=== PATIENT | male | born 1965 | race Caucasian/White ===

== ENCOUNTER 2016-09-28 19:49 | Emergency (ER) | payer BC ==
[2016-09-28 19:57] VITALS: BP 137/94
--- NOTE | 2016-09-28 20:34 | EDM.PDOC ---
ED HPI GENERAL MEDICAL PROBLEM - General Chief Complaint: General Stated Complaint: Mouth Swelling Time Seen by Provider: 09/28/16 20:13 Source of Information: Reports: Patient History Limitations: Reports: No Limitations - History of Present Illness INITIAL COMMENTS - FREE TEXT/NARRATIVE: Patient comes in with complaint that his lips are feeling swollen today. He says that he has felt on/off swelling around mouth over the last few days. Also notes increased nasal congestion. No SOB/respiratory complaints. No hives. No known food/chemical contact. No changes in what he consumes/is exposed to. Has had similar reaction in past to Almonds as well as Gabapentin for shingles. Took two Benadryl early this morning and one later this afternoon. No other complaints. Feels OK otherwise when ROS performed. confirms that patient's lips are more swollen than usual. - Related Data Allergies Allergy/AdvReac Type Severity Reaction Status Date / Time gabapentin Allergy Swelling Verified 09/28/16 20:28 Home Meds: Home Meds Fluticasone Propionate [Flonase] 2 spray NASBOTH DAILY 09/28/16 [History] Past Medical History - Past Health History Medical/Surgical History: Denies Medical/Surgical History ED ROS GENERAL - Review of Systems Review Of Systems: ROS reveals no pertinent complaints other than HPI. ED EXAM, GENERAL - Physical Exam Exam: See Below Exam Limited By: No Limitations General Appearance: Alert, WD/WN, No Apparent Distress Eye Exam: Bilateral Eye: EOMI, PERRL Ears: Normal External Exam, Normal Canal, Hearing Grossly Normal, Normal TMs Nose: Other (Musosa is boggy, pale) Throat/Mouth: Normal Teeth, Normal Gums, Normal Oropharynx, Normal Voice, No Airway Compromise, Other (Lips do not appear obviously swollen) Head: Atraumatic, Normocephalic Neck: Normal Inspection, Supple, Non-Tender, Full Range of Motion Respiratory/Chest: No Respiratory Distress, Lungs Clear, Normal Breath Sounds, No Accessory Muscle Use Cardiovascular: Normal Peripheral Pulses, Regular Rate, Rhythm, No Edema, No Murmur GI/Abdominal: Soft Extremities: Normal Inspection, Normal Capillary Refill Neurological: Alert, Oriented, Normal Cognition, Normal Gait Psychiatric: Normal Affect, Normal Mood Skin Exam: Warm, Dry, Intact, Normal Color, No Rash Course - Vital Signs Last Recorded V/S: Last Vital Signs Temp 36.6 C 09/28/16 19:55 Pulse 63 09/28/16 19:55 Resp 14 09/28/16 19:55 BP 137/94 H 09/28/16 19:55 Pulse Ox 98 09/28/16 19:55 - Re-Assessments/Exams Free Text/Narrative Re-Assessment/Exam: Mild swelling of lips/angioedema along with nasal congestion. No respiratory compromise. No urticaria. Uncertain as to trigger. Plan at this time is to provide course of Prednisone. Patient is to continue to be vigilant for food/ environmental triggers as well as worsening problems or new symptoms. Recommended follow up with primary provider this week unless symptoms completely resolve. Extensive precautions reviewed prior to discharge. Departure - Departure Time of Disposition: 20:32 Disposition: Home, Self-Care 01 Condition: Good Clinical Impression: Swelling of both lips - Discharge Information Instructions: Angioedema, [id number], Prednisolone tablets Referrals: PCP,Unknown [Primary Care Provider] - Forms: ED Department Discharge Additional Instructions: Watch for any new symptoms or worsening problems. Follow up in ER if you have sudden worsening, such as shortness of breath. Follow up in clinic next week if you continue to have intermittent mild lip swelling and get rechecked. Ok to take Benadryl 1-2 tablets every 6 hours to help with symptoms. Take Prednisone as directed for 5 days.
== END 2016-09-28 20:50 | disposition home or self-care (01) ==
LOC: LL.ED 19:49
DX: R22.0 Localized swelling, mass and lump, head (principal); Z88.8 Allergy status to other drugs, medicaments and biological substances; Z79.899 Other long term (current) drug therapy
CPT/HCPCS: 99283

== ENCOUNTER 2019-01-26 18:05 | Emergency (ER) | payer BC ==
[2019-01-26 18:53] LABS: CHLORIDE,CL 108 mmol/L (98-107); SODIUM,NA 143 mmol/L (136-145)
[2019-01-26] MEDS: Diltiazem 25 MG/5 ML SDV IVPUSH ONE (19:06)
[2019-01-26] MEDS: Sodium Chloride 0.9% 10 ML Syringe FLUSH PRN (19:07)
--- NOTE | 2019-01-26 19:53 | EDM.PDOC ---
ED HPI GENERAL MEDICAL PROBLEM - General Chief Complaint: Chest Pain Stated Complaint: heart feels fast Time Seen by Provider: 01/26/19 18:11 Source of Information: Reports: Patient History Limitations: Reports: No Limitations - History of Present Illness INITIAL COMMENTS - FREE TEXT/NARRATIVE: Patient reports feeling that his heart was beating too fast today. Describes feeling "not right" but otherwise observed no other acute changes. Placed on monitor in ER and noted to have afib with tachycardic heart rate. Patient denies any cardiac history including arrhythmias. Has no chronic health conditions other than hypertension per self report but via questioning may have sleep apnea. Non-smoker. Denies caffeine/ETOH/illicit drug use. Was started on Prednisone and Augmentin yesterday for sinus infection. No fevers/chills. No other HEENT changes such as vision change/dizziness/vertigo/CLAUDIO. No respiratory complaints such as SOB/cough Did have brief/sharp chest discomfort at 6am when he first noted symptoms. This did not return, currently pain-free. Pain did not radiate anywhere. Denies GI changes such as nausea/emesis/bowel changes. Eating ok. No urinary complaints. No musc/skel changes/weakness/pain. No focal neuro changes/weakness. Has own BP machine at home. Essentially decided to come to the ER due to serial high BP readings. - Related Data Allergies Allergy/AdvReac Type Severity Reaction Status Date / Time peanut Allergy Anaphylactic Verified 01/26/19 18:09 Shock Home Meds: Home Meds Amoxicillin/Potassium Clav [Amox-Clav 875-125 mg Tablet] 1 each PO BID 01/26/19 [History] Diltiazem [Cardizem CD] 120 mg PO DAILY #21 cap.er 01/26/19 [Rx] Lisinopril 10 mg PO DAILY 01/26/19 [History] Rivaroxaban [Xarelto] 20 mg PO DAILY #21 tablet 01/26/19 [Rx] predniSONE [Prednisone] 3 tab PO DAILY 01/26/19 [History] Past Medical History - Past Health History Medical/Surgical History: Denies Medical/Surgical History Cardiovascular History: Reports: Hypertension, Other (See Below) Other Cardiovascular History: new afib today - Infectious Disease History Infectious Disease History: Reports: Shingles - Past Surgical History HEENT Surgical History: Reports: Polypectomy, Other (See Below) Other HEENT Surgeries/Procedures: sinus surgery Male Surgical History: Reports: Other (See Below) Other Male Surgeries/Procedures: gave kidney to brother Endocrine Surgical History: Reports: Other (See Below) Other Endocrine Surgeries/Procedures: 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 Social & Family History - Tobacco Use Smoking Status *Q: Never Smoker Second Hand Smoke Exposure: No - Caffeine Use Caffeine Use: Reports: None - Alcohol Use Alcohol Use History: No - Recreational Drug Use Recreational Drug Use: No Drug Use in Last 12 Months: No ED ROS GENERAL - Review of Systems Review Of Systems: Comprehensive ROS is negative, except as noted in HPI. Constitutional: Denies: Fever, Weakness, Fatigue, Diaphoresis HEENT: Denies: Vision Change Respiratory: Denies: Shortness of Breath, Pleuritic Chest Pain Cardiovascular: Reports: Chest Pain, Blood Pressure Problem, Palpitations. Denies: Dyspnea on Exertion, Edema, Lightheadedness, Syncope GI/Abdominal: Reports: No Symptoms : Reports: No Symptoms Musculoskeletal: Reports: No Symptoms Skin: Reports: No Symptoms Neurological: Reports: No Symptoms Psychiatric: Reports: No Symptoms Hematologic/Lymphatic: Reports: No Symptoms ED EXAM, GENERAL - Physical Exam Exam: See Below Exam Limited By: No Limitations General Appearance: Alert, WD/WN, No Apparent Distress Eye Exam: Bilateral Eye: EOMI, PERRL Ears: Normal External Exam, Hearing Grossly Normal Nose: No: Nasal Deformity, Nasal Swelling, Nasal Drainage Throat/Mouth: Normal Lips, Normal Voice, No Airway Compromise Head: Atraumatic, Normocephalic Neck: Normal Inspection, Supple, Non-Tender, Full Range of Motion. No: Carotid Bruit Respiratory/Chest: No Respiratory Distress, Lungs Clear, Normal Breath Sounds, No Accessory Muscle Use, Chest Non-Tender Cardiovascular: No Edema, No Murmur, Tachycardia Peripheral Pulses: 2+: Radial (L), Radial (R) GI/Abdominal: Normal Bowel Sounds, Soft, Non-Tender, No Distention (Male) Exam: Penile Lesions Rectal (Males) Exam: Deferred Back Exam: Normal Inspection Extremities: Normal Range of Motion, Non-Tender, No Pedal Edema, Normal Capillary Refill Neurological: Alert, Oriented, Normal Cognition, Normal Gait, No Motor/Sensory Deficits Psychiatric: Normal Affect, Normal Mood Skin Exam: Warm, Dry, Intact, Normal Color EKG INTERPRETATION EKG Date: 01/26/19 Time: 18:35 Rhythm: A-Fib Rate (Beats/Min): 84 Arnold: LAD-Left Arnold Deviation P-Wave: Absent QRS: Other (QRS slightly widened) ST-T: Other (no acute changes suggestive of ischemia noted) QT: Normal Comparison: NA - No Prior EKG Course - Vital Signs Last Recorded V/S: Last Vital Signs Temp 36.6 C 01/26/19 18:06 Pulse 90 01/26/19 18:30 Resp 18 01/26/19 18:30 BP 145/93 H 01/26/19 18:30 Pulse Ox 95 01/26/19 18:30 - Orders/Labs/Meds Orders: Active Orders 24 hr Category Date Time Status EKG Documentation Completion [RC] ASDIRECTED Care 01/26/19 18:12 Ordered Chest 2V [CR] Stat Exams 01/26/19 18:12 Ordered TSH ULTRASENSITIVE [CHEM] Routine Lab 01/26/19 19:22 Ordered Diltiazem [Cardizem CD] Med 01/26/19 19:45 Once 120 mg PO ONETIME ONE Rivaroxaban [Xarelto] Med 01/27/19 19:45 Once 20 mg PO ONETIME ONE Sodium Chloride 0.9% [Saline Flush] Med 01/26/19 18:11 Ordered 10 ml FLUSH ASDIRECTED PRN Saline Lock Insert [OM.PC] Routine Oth 01/26/19 18:11 Ordered Medication Orders Diltiazem HCl (Cardizem Cd) 120 mg PO ONETIME ONE Stop: 01/26/19 19:46 Rivaroxaban (Xarelto) 20 mg PO ONETIME ONE Stop: 01/27/19 19:46 Sodium Chloride (Saline Flush) 10 ml FLUSH ASDIRECTED PRN PRN Reason: Keep Vein Open Last Admin: 01/26/19 19:07 Dose: 10 ml Labs: Laboratory Tests 01/26/19 01/26/19 01/26/19 Range/Units 18:33 18:33 18:33 WBC 9.3 (4.0-10.2) K/uL RBC 4.81 (4.33-5.41) M/uL Hgb 14.3 (13.1-16.8) g/dL Hct 43.5 (39.0-49.0) % MCV 90.4 (84.0-98.0) fL MCH 29.7 (28.2-33.3) pg MCHC 32.9 (31.7-36.0) g/dL RDW 14.5 H (11.2-14.1) % Plt Count 211 (150-350) K/uL Neut % (Auto) 66.6 (45.0-80.0) % Lymph % (Auto) 18.9 (10.0-50.0) % [place] % (Auto) 11.1 (2.0-14.0) % Eos % (Auto) 2.9 (0.0-5.0) % Baso % (Auto) 0.5 (0.0-2.0) % Neut # (Auto) 6.19 (1.40-7.00) K/uL Lymph # (Auto) 1.76 (0.50-3.50) K/uL [place] # (Auto) 1.03 H (0.00-1.00) K/uL Eos # (Auto) 0.27 (0.00-0.50) K/uL Baso # (Auto) 0.05 (0.00-0.20) K/uL PT 10.2 (9.5-12.0) SEC INR 0.9 Sodium 143 (136-145) mmol/L Potassium 3.5 (3.5-5.1) mmol/L Chloride 108 H (98-107) mmol/L Carbon Dioxide 22.9 (21.0-32.0) mmol/L BUN 20 H (7-18) mg/dL Creatinine 1.14 (0.51-1.17) mg/dL Est Cr Clr Drug Dosing 76.49 mL/min Estimated GFR (MDRD) > 60 mL/min Glucose 97 (74-106) mg/dL Calcium 8.2 L (8.5-10.1) mg/dL Magnesium 2.0 (1.8-2.4) mg/dL Total Bilirubin 0.2 (0.2-1.0) mg/dL AST 39 H (15-37) U/L ALT 74 (12-78) U/L Alkaline Phosphatase 62 (46-116) IU/L Troponin I 0.000 (0.000-0.056) ng/mL Total Protein 7.2 (6.4-8.2) g/dL Albumin 3.5 (3.4-5.0) g/dL Specimen Type Urine Color Urine Appearance Urine pH (5.0-9.0) Ur Specific [place] (1.005-1.030) Urine Protein (NEGATIVE) mg/dL Urine Glucose (UA) (NEGATIVE) mg/dL Urine Ketones (NEGATIVE) mg/dL Urine Occult Blood (NEGATIVE) Urine Nitrite (NEGATIVE) Urine Bilirubin (NEGATIVE) Urine Urobilinogen (0.2-1.0) E.U./dL Ur Leukocyte Esterase (NEGATIVE) Urine RBC /HPF Urine WBC /HPF Ur Epithelial Cells /LPF Urine Bacteria (NONE TO FEW) /HPF 01/26/19 Range/Units 18:59 WBC (4.0-10.2) K/uL RBC (4.33-5.41) M/uL Hgb (13.1-16.8) g/dL Hct (39.0-49.0) % MCV (84.0-98.0) fL MCH (28.2-33.3) pg MCHC (31.7-36.0) g/dL RDW (11.2-14.1) % Plt Count (150-350) K/uL Neut % (Auto) (45.0-80.0) % Lymph % (Auto) (10.0-50.0) % [place] % (Auto) (2.0-14.0) % Eos % (Auto) (0.0-5.0) % Baso % (Auto) (0.0-2.0) % Neut # (Auto) (1.40-7.00) K/uL Lymph # (Auto) (0.50-3.50) K/uL [place] # (Auto) (0.00-1.00) K/uL Eos # (Auto) (0.00-0.50) K/uL Baso # (Auto) (0.00-0.20) K/uL PT (9.5-12.0) SEC INR Sodium (136-145) mmol/L Potassium (3.5-5.1) mmol/L Chloride (98-107) mmol/L Carbon Dioxide (21.0-32.0) mmol/L BUN (7-18) mg/dL Creatinine (0.51-1.17) mg/dL Est Cr Clr Drug Dosing mL/min Estimated GFR (MDRD) mL/min Glucose (74-106) mg/dL Calcium (8.5-10.1) mg/dL Magnesium (1.8-2.4) mg/dL Total Bilirubin (0.2-1.0) mg/dL AST (15-37) U/L ALT (12-78) U/L Alkaline Phosphatase (46-116) IU/L Troponin I (0.000-0.056) ng/mL Total Protein (6.4-8.2) g/dL Albumin (3.4-5.0) g/dL Specimen Type Urinblad Urine Color Yellow Urine Appearance Clear Urine pH 6.5 (5.0-9.0) Ur Specific [place] 1.015 (1.005-1.030) Urine Protein Negative (NEGATIVE) mg/dL Urine Glucose (UA) Negative (NEGATIVE) mg/dL Urine Ketones Negative (NEGATIVE) mg/dL Urine Occult Blood Negative (NEGATIVE) Urine Nitrite Negative (NEGATIVE) Urine Bilirubin Negative (NEGATIVE) Urine Urobilinogen 0.2 (0.2-1.0) E.U./dL Ur Leukocyte Esterase Negative (NEGATIVE) Urine RBC Not seen /HPF Urine WBC 0-5 /HPF Ur Epithelial Cells Few /LPF Urine Bacteria Few (NONE TO FEW) /HPF Meds: Medications Generic Name Dose Route Start Last Admin Trade Name Freq PRN Reason Stop Dose Admin Diltiazem HCl 120 mg 01/26/19 19:45 Cardizem Cd PO 01/26/19 19:46 ONETIME ONE Rivaroxaban 20 mg 01/27/19 19:45 Xarelto PO 01/27/19 19:46 ONETIME ONE Sodium Chloride 10 ml 01/26/19 18:11 01/26/19 19:07 Saline Flush FLUSH 10 ml ASDIRECTED PRN Administration Keep Vein Open Discontinued Medications Generic Name Dose Route Start Last Admin Trade Name Freq PRN Reason Stop Dose Admin Diltiazem HCl 20 mg 01/26/19 18:57 01/26/19 19:06 Diltiazem IVPUSH 01/26/19 18:58 20 mg ONETIME ONE Administration - Radiology Interpretation Free Text/Narrative:: Chest xray did not show obvious acute focal changes. Pending Radiology review - Re-Assessments/Exams Free Text/Narrative Re-Assessment/Exam: 01/26/19 19:59 CBC/Chem/Troponin overall unremarkable. TSH pending. UA normal. Patient received single dose of Cardizem and had good improvement of rate/BP. Continued to remain asymptomatic, vital signs stable. Call placed to [facility] in [place]. Patient reviewed with Dr. Fuentes from Cardiology. Given that patient is stable, asymptomatic, with normal labs, it was recommended to start patient on Xarelto and Cardizem for anticoagulation and rate control. Patient is to call tomorrow and arrange a follow up appointment with Cardiology for further care and evaluation, including echo to rule out potential thrombus formation. Work slip given for [facility] and tomorrow. Patient already on restrictions at [facility]. He is also to follow up with his primary provider or Friday if he is able to get an appointment. Precautions reviewed prior to discharge. He knows to return to the ER if he has worsening problems, such as chest pain/SOB. Departure - Departure Time of Disposition: 20:07 Disposition: Home, Self-Care 01 Clinical Impression: New onset a-fib - Discharge Information *PRESCRIPTION DRUG MONITORING PROGRAM REVIEWED*: Not Applicable *COPY OF PRESCRIPTION DRUG MONITORING REPORT IN PATIENT SARA: Not Applicable Prescriptions: Diltiazem [Cardizem CD] 120 mg PO DAILY #21 cap.er Rivaroxaban [Xarelto] 20 mg PO DAILY #21 tablet Instructions: Atrial Fibrillation Additional Instructions: Take it easy and avoid strenuous activity. Return to the ER if you feel worse, such as developing shortness of breath/ chest pain/dizziness. Make two appointments tomorrow. One with your primary provider to get rechecked on or Friday of this week. One with [facility] Cardiology within the next week or so. Tell them that you have new onset AFib and that we spoke to from Cardiology [facility] and you are supposed to be seen for this. You will need to be scheduled for an echo study of your heart to make certain that no thrombus has formed in there due to the AFib. We do have a travelling [place] [employer] tech that can perform this at our hospital in [place]. Have Cardiology or your primary provider order that test for you. Remember to return to the ER if your symptoms suddenly worsen. Things to look for include chest pain, shortness of breath, and feeling lightheaded. - My Orders Last 24 Hours: My Active Orders 01/26/19 18:11 Sodium Chloride 0.9% [Saline Flush] 10 ml FLUSH ASDIRECTED PRN Saline Lock Insert [OM.PC] Routine 01/26/19 18:12 EKG Documentation Completion [RC] ASDIRECTED Chest 2V [CR] Stat 01/26/19 19:22 TSH ULTRASENSITIVE [CHEM] Routine 01/26/19 19:45 Diltiazem [Cardizem CD] 120 mg PO ONETIME ONE 01/27/19 19:45 Rivaroxaban [Xarelto] 20 mg PO ONETIME ONE - Assessment/Plan Last 24 Hours: My Active Orders 01/26/19 18:11 Sodium Chloride 0.9% [Saline Flush] 10 ml FLUSH ASDIRECTED PRN Saline Lock Insert [OM.PC] Routine 01/26/19 18:12 EKG Documentation Completion [RC] ASDIRECTED Chest 2V [CR] Stat 01/26/19 19:22 TSH ULTRASENSITIVE [CHEM] Routine 01/26/19 19:45 Diltiazem [Cardizem CD] 120 mg PO ONETIME ONE 01/27/19 19:45 Rivaroxaban [Xarelto] 20 mg PO ONETIME ONE
[2019-01-26] MEDS: Rivaroxaban 10 MG Tab PO ONE (20:08)
[2019-01-26 20:09] VITALS: BP 116/88
[2019-01-26] MEDS: Diltiazem 120 MG Cap.CD PO ONE (20:09)
[2019-01-26 20:55] VITALS: PULSE 74
[2019-01-27] MEDS ORDERED: Rivaroxaban 10 MG Tab PO ONE (19:45)
== END 2019-01-26 20:30 | disposition home or self-care (01) ==
LOC: LL.ED 18:05
DX: I48.91 Unspecified atrial fibrillation (principal); I10 Essential (primary) hypertension; Z91.010 Allergy to peanuts; Z79.01 Long term (current) use of anticoagulants; Z79.899 Other long term (current) drug therapy
CPT/HCPCS: 36415; 71046; 80053; 81001; 83735; 84443; 84484; 85025; 85610; 93005; 96374; 99285-25; A9270-GY; J3490

== ENCOUNTER 2019-08-25 04:35 | Emergency (ER) | payer BC, OTHER ==
[2019-08-25 04:42] VITALS: BP 138/91; PULSE 70
--- NOTE | 2019-08-25 05:10 | EDM.PDOC ---
ED HPI GENERAL MEDICAL PROBLEM - General Chief Complaint: Lower Extremity Injury/Pain Stated Complaint: right knee injury Time Seen by Provider: 08/25/19 05:00 Source of Information: Reports: Patient, Old Records ([facility] EMR. No paper hospital chart available.) History Limitations: Reports: No Limitations - History of Present Illness INITIAL COMMENTS - FREE TEXT/NARRATIVE: The patient was brought to the emergency room via transport vehicle from [facility] for evaluation of a Workmen's Compensation injury, which occurred at about 6 AM on 08/24/19. The patient was walking down the stairs when he slipped and accidentally twisted his right knee with the patient able to complete his shift with no significant difficulty. He has not injured this knee in the past and felt that he only had a minor sprain at the time of injury. No history of significant fall, head injury, paresthesias, neurological deficits, etc. After he woke up later that day at about 2 PM he noticed he had some worsening pain with 400 mg of ibuprofen taken at that time and also at midnight this past evening. Patient also took 1500 mg of Tylenol at about 3 AM this evening with persistent 8/10 right knee pain. He denies any joint instability, neurological deficits, or other complaints or injuries. The patient denies any chest pain/pressure, heart flutter, dizziness, orthostasis, orthopnea, diaphoresis, paresthesias, recent decreased exercise tolerance, or any other anginal-type symptoms. No recent history of abdominal pain, heartburn, nausea, diarrhea, melena, gross hematochezia, or any food intolerance, including fatty foods, etc.. The patient also denies any recent fever, cough, wheezing, dyspnea, etc.. Onset: Sudden Onset Date: 08/24/19 Onset Time: 06:00 Duration: Constant, Getting Worse Location: Reports: Lower Extremity, Right. 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 Denies: Hard of Hearing, Impaired Vision, Retinal Detachment Cardiovascular History: Reports: Afib, High Cholesterol, Hypertension, Other (See Below). Denies: Arrhythmia, CAD, Cardiomyopathy, Heart Failure, Heart Murmur, [place], Syncope Other Cardiovascular History: Atrial fibrillation diagnosed on 01/26/19. Hyperlipidemiadiet controlled. Respiratory History: Reports: None. Denies: Asthma, COPD Gastrointestinal History: Reports: Colon Polyp. Denies: GERD Genitourinary History: Reports: None. Denies: Acute Renal Failure, BPH, Chronic Renal Insuffiency, Renal Calculus, UTI, Recurrent Musculoskeletal History: Reports: Arthritis, Back Pain, Chronic, Osteoarthritis. Denies: Fracture Neurological History: Reports: None. Denies: Concussion, Head Trauma, Neuropathy, Peripheral, Seizure Psychiatric History: Reports: Anxiety, Depression. Denies: Abuse, Victim of, ADD, ADHD, Addiction, Psych Hospitalization(s), PTSD, Suicide Attempt, Suicidal Ideation Endocrine/Metabolic History: Reports: Obesity/BMI 30+. Denies: Diabetes, Type I, Diabetes, Type II, Diabetes Mellitus, Type 3c, Hypothyroidism, IDDM Hematologic History: Reports: None. Denies: Anemia, Blood Transfusion(s), Iron Deficiency Dermatologic History: Reports: Angiodema, Other (See Below) Other Dermatologic History: Angioedema(mild lips) to nuts/peanuts and gabapentin - Infectious Disease History Infectious Disease History: Reports: Chicken Pox, Measles, Shingles (Left forehead region inand 16 with no eye involvement). Denies: C-Difficile, Meningitis, Mononucleosis, MRSA, Mumps, Pertussis (Whooping Cough), Rheumatic Fever, Rubella, Scarlet Fever, VRE - Past Surgical History Head Surgeries/Procedures: Reports: None HEENT Surgical History: Reports: Naso-Sinus Surgery, Polypectomy, Other (See Below). Denies: Adenoidectomy, Cataract Surgery, Eye Surgery, Laser Surgery, LASIK, Myringotomy w Tube(s), Tonsillectomy Other HEENT Surgeries/Procedures: Sinus surgery with nasal polypectomy. Cardiovascular Surgical History: Reports: None. Denies: Varicose Respiratory Surgical History: Reports: None GI Surgical History: Reports: Colonoscopy, Polypectomy, Other (See Below). Denies: EGD, Hernia, Abdominal, Hernia, Inguinal, Hernia Repair/Other Other GI Surgeries/Procedures: Colonoscopy in 2018 with removal of unknown type of polyp. Male Surgical History: Reports: Nephrectomy, Other (See Below). Denies: Circumcision, TURP-Transurethral Resection of Prostate Other Male Surgeries/Procedures: Left renal donation his brother in 1991 Endocrine Surgical History: Reports: None Neurological Surgical History: Reports: None Musculoskeletal Surgical History: Reports: None. Denies: Arthroscopic Procedure, ORIF Oncologic Surgical History: Reports: None Dermatological Surgical History: Reports: None Social & Family History - Family History : Reports: Renal Disease/Insufficiency, Other (See Below) Other Family History: Brother with renal failure secondary to motorcycle accident with kidney donation by patient as above. - Tobacco Use Smoking Status *Q: Former Smoker Tobacco Use Within Last Twelve Months: Snuff/Dip Years of Tobacco use: 37 Packs/Tins Daily: 0.3 Used Tobacco, but Quit: Yes Month/Year Tobacco Last Used: Discontinued chewing tobacco use in June 2016 with 1/3 can per day Smoking Cessation Information Provided To Patient: No Second Hand Smoke Exposure: Yes Source of Second Hand Smoke Exposure: smokes Second Hand Smoke Education Provided: Yes - Caffeine Use Caffeine Use: Reports: None - Recreational Drug Use Recreational Drug Use: No Drug Use in Last 12 Months: No - Living Situation & Occupation Living situation: Reports: (1988, 2 children), with Family 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 ED EXAM, GENERAL - Physical Exam Exam: See Below Exam Limited By: No Limitations General Appearance: Alert, WD/WN, No Apparent Distress Head: Atraumatic, Normocephalic. No: Facial Swelling, Facial Tenderness, Sinus Tenderness Neck: Normal Inspection, Supple, Non-Tender, Full Range of Motion. No: Lymphadenopathy (L), Lymphadenopathy (R), Thyromegaly Respiratory/Chest: No Respiratory Distress, Lungs Clear, Normal Breath Sounds, No Accessory Muscle Use, Chest Non-Tender. No: Pleural Rub, Retractions Cardiovascular: Normal Peripheral Pulses, Regular Rate, Rhythm, No Edema, No Gallop, No JVD, No Murmur, No Rub. No: Gallop/S3, Gallop/S4, Extra Beats, Friction Rub Peripheral Pulses: 2+: Radial (L), Radial (R), Dorsalis Pedis (R) GI/Abdominal: Normal Bowel Sounds, Soft, Non-Tender, No Organomegaly, No Distention, No Abnormal Bruit, No Mass, Pelvis Stable, Other (Obese). No: Guarding (Male) Exam: Deferred Rectal (Males) Exam: Deferred Back Exam: Normal Inspection, Full Range of Motion. No: CVA Tenderness (L), CVA Tenderness (R), Muscle Spasm Extremities: No Pedal Edema, Normal Capillary Refill, Joint Swelling (Right knee effusion-mild), Leg Pain (Mild palpation pain over the patella of the right knee no crepitation, deformity, etc. Negative anterior drawer, pivot shift, and Mae's test.), Limited Range of Motion (Minimal in the right knee). No: Christa's Sign Neurological: Alert, Oriented, CN II-XII Intact, Normal Cognition, Normal Gait, No Motor/Sensory Deficits Psychiatric: Normal Affect, Normal Mood Skin Exam: Warm, Dry, Intact, Normal Color, No Rash. No: Diaphoretic, Ecchymosis, Petechiae, Wound/Incision Lymphatic: No Adenopathy Course - Vital Signs Last Recorded V/S: Last Vital Signs Temp 36.6 C 08/25/19 04:41 Pulse 70 08/25/19 04:41 Resp 15 08/25/19 04:41 BP 138/91 H 08/25/19 04:41 Pulse Ox 97 08/25/19 04:41 Vital Signs - 24 hr 08/25/19 04:41 Temperature [ 36.6 C Temporal] Pulse, 70 Peripheral [ Left Pulse Oximetry] Respiratory 15 Rate Blood Pressure 138/91 H [Left Upper Arm ] O2 Sat by Pulse 97 Oximetry - Orders/Labs/Meds Orders: Active Orders 24 hr Category Date Time Status Knee 3V Rt [CR] Stat Exams 08/25/19 05:10 Ordered Obtain Past Medical Record [OM.PC] Routine Oth 08/25/19 05:10 Active Labs: None Meds: None - Radiology Interpretation Free Text/Narrative:: X-rays of the right knee, 3 views, shows no evidence of fracture, dislocation, etc. with moderate osteoarthritic changes noted, including in the patella region. Departure - Departure Time of Disposition: 05:58 Disposition: Home, Self-Care 01 Condition: Good Clinical Impression: Sprain of knee, Tobacco abuse counseling, Mixed anxiety depressive disorder, Atrial fibrillation Hypertension Qualifiers: Hypertension type: essential hypertension Qualified Code(s): I10 - Essential (primary) hypertension Osteoarthritis Qualifiers: Osteoarthritis location: multiple joints Osteoarthritis type: primary Qualified Code(s): M89.49 - Other hypertrophic osteoarthropathy, multiple sites Hyperlipidemia Qualifiers: Hyperlipidemia type: unspecified Qualified Code(s): E78.5 - Hyperlipidemia, unspecified - Discharge Information *PRESCRIPTION DRUG MONITORING PROGRAM REVIEWED*: Not Applicable *COPY OF PRESCRIPTION DRUG MONITORING REPORT IN PATIENT SARA: Not Applicable Instructions: Steps to Quit Smoking, [id number], Health Risks of Smoking, Knee Sprain, Adult, [id number], Preventing Exposure to Secondhand Smoke, Adult Forms: ED Department Discharge Additional Instructions: 1. Followup with your regular provider in 10-14 days as directed. Bring these discharge instructions with you to that visit. 2. Tylenol 650 mg by mouth every 4 hours when necessary as directed. 3. NEVER used any aspirin, ibuprofen, Aleve, or other NSAIDs while on Xarelto 4. Work excuse- See Form 5. Limited weightbearing on your right leg/knee until otherwise directed by your regular provider with crutches to be used as needed/directed 6. Knee sleeve should be worn at all times with exception of bathing until otherwise directed by your regular provider 7. BenGay or equivalent, heating pad, and/or ice packs as directed. 8. Stop all tobacco exposure DESTINY as directed with counselling, information, etc. given at discharge. 9. Continue to observe your blood pressure closely through your regular provider 10. Immediately after this visit verify that your cellular telephone's voicemail has been activated and is empty. Also verify that your home telephone's answering machine is operating properly and has space to receive messages. Note that it is sometimes necessary for us to be able to contact you at a later date to discuss your medical care. 11. Please remember that we are ALWAYS here for you and want to answer any questions you may have. Feel free to call the hospital any time and we call you back DESTINY. 12. NEVER EXCEED THE RECOMMENDED DOSE OF MEDICINES, INCLUDING OTC MEDICINES, ETC. Sepsis Event Note (ED) - Evaluation Sepsis Screening Result: No Definite Risk - Focused Exam Vital Signs: Vital Signs Temp Pulse Resp BP Pulse Ox 08/25/19 04:41 36.6 C 70 15 138/91 H 97 - Problem List & Annotations (1) Sprain of knee SNOMED Code(s): 13153088 Code(s): S83.90XA - SPRAIN OF UNSPECIFIED SITE OF UNSPECIFIED KNEE, INIT ENCNTR Status: Acute Priority: High Onset Date: 08/24/19 An notation/Comment:: Symptomatic relief as per discharge instructions. Knee sleeve provided and placed by the nurse today. He apparently already has crutches at home. Quitt.ch work excuse and Workmen's Compensation forms were completed. He was cautioned not to exceed recommended doses of medications. (2) Osteoarthritis SNOMED Code(s): 303702549 Code(s): M19.90 - UNSPECIFIED OSTEOARTHRITIS, UNSPECIFIED SITE Status: Chronic Priority: Medium Annotation/Comment:: Otherwise stable by history with no evidence of other injury. Qualifiers: Osteoarthritis location: multiple joints Osteoarthritis type: primary Qualified Code(s): M89.49 - Other hypertrophic osteoarthropathy, multiple sites (3) Hypertension SNOMED Code(s): 22201146 Code(s): I10 - ESSENTIAL (PRIMARY) HYPERTENSION Status: Chronic Priority: Medium Annotation/Comment:: Blood Pressure somewhat elevated in the emergency room. Continue to observe closely by his regular provider. 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 Note current lisinopril therapy with consideration of discontinuation of this medication, if angioedema reoccurs. Qualifiers: Hypertension type: essential hypertension Qualified Code(s): I10 - Essential (primary) hypertension (4) Hyperlipidemia SNOMED Code(s): 78621299 Code(s): E78.5 - HYPERLIPIDEMIA, UNSPECIFIED Status: Chronic Priority: Medium Annotation/Comment:: Currently diet controlled. Weight loss in moderation advisable. Qualifiers: Hyperlipidemia type: unspecified Qualified Code(s): E78.5 - Hyperlipidemia, unspecified (5) Mixed anxiety depressive disorder SNOMED Code(s): 539007332 Code(s): F41.8 - OTHER SPECIFIED ANXIETY DISORDERS Status: Chronic Priority: Medium Annotation/Comment:: Stable by patient history with medication apparently recently initiated. (6) Tobacco abuse counseling SNOMED Code(s): 946404726, 361589215, 257124588 Code(s): Z71.6 - TOBACCO ABUSE COUNSELING Status: Chronic Priority: Medium Annotation/Comment:: He was congratulated about discontinuation of his chewing tobacco. Tobacco cessation information provided for his . (7) Atrial fibrillation SNOMED Code(s): 64178453 Code(s): I48.91 - UNSPECIFIED ATRIAL FIBRILLATION Status: Acute Priority: Medium Onset Date: ~01/26/19 Annotation/Comment:: Sinus rhythm today. He apparently has an echocardiogram scheduled with his regular provider later this month. No chest pain or anginal type symptoms. The patient was cautioned not to use any NSAIDs while on Xarelto. Qualifiers: Atrial fibrillation type: paroxysmal Qualified Code(s): I48.0 - Paroxysmal atrial fibrillation - Problem List Review Problem List Initiated/Reviewed/Updated: Yes - My Orders Last 24 Hours: My Active Orders 08/25/19 05:10 Knee 3V Rt [CR] Stat Obtain Past Medical Record [OM.PC] Routine - Assessment/Plan Last 24 Hours: My Active Orders 08/25/19 05:10 Knee 3V Rt [CR] Stat Obtain Past Medical Record [OM.PC] Routine Assessment:: As above Plan: As above. Extensive precautions were given to the patient, who is in agreement with the treatment plan. See Patient Instructions for further treatment and plan.
== END 2019-08-25 05:58 | disposition home or self-care (01) ==
LOC: LL.ED 04:35
DX: S83.91XA Sprain of unspecified site of right knee, initial encounter (principal); M89.48 Other hypertrophic osteoarthropathy, other site; E78.5 Hyperlipidemia, unspecified; I10 Essential (primary) hypertension; F41.8 Other specified anxiety disorders; I48.91 Unspecified atrial fibrillation; Z88.8 Allergy status to other drugs, medicaments and biological substances; Z91.010 Allergy to peanuts; E66.9 Obesity, unspecified; Z79.01 Long term (current) use of anticoagulants; Z71.6 Tobacco abuse counseling; Z79.899 Other long term (current) drug therapy; Z87.891 Personal history of nicotine dependence; Z68.35 Body mass index [BMI] 35.0-35.9, adult; X50.1XXA Overexertion from prolonged static or awkward postures, initial encounter
CPT/HCPCS: 73562-RT; 99283-25

== ENCOUNTER 2023-07-24 08:39 | Day surgery (SDC) | payer BC, OTHER ==
[~2023-07-24 08:39] MED LIST: Midazolam 1 MG/ML 2 ML SDV ONE; Propofol 200 MG/20 ML SDV ONE; Sodium Chloride 0.9% 10 ML Syringe FLUSH PRN
[2023-07-24] MEDS: Lactated Ringers 1,000 ML IV SCH (08:54)
[2023-07-24 17:11] VITALS: BP 141/83; PULSE 88
== END 2023-07-24 10:55 ==
LOC: LL.SDS 08:39
PROVIDERS: ATTEND Surgery
DX: Z12.11 Encounter for screening for malignant neoplasm of colon (principal); D12.3 Benign neoplasm of transverse colon; B02.9 Zoster without complications; E66.01 Morbid (severe) obesity due to excess calories; I10 Essential (primary) hypertension; I48.0 Paroxysmal atrial fibrillation; F41.1 Generalized anxiety disorder; R09.81 Nasal congestion; I25.10 Atherosclerotic heart disease of native coronary artery without angina pectoris; Z86.010 Personal history of colon polyps; Z68.35 Body mass index [BMI] 35.0-35.9, adult; Z79.899 Other long term (current) drug therapy; Z88.8 Allergy status to other drugs, medicaments and biological substances; Z91.018 Allergy to other foods; Z87.891 Personal history of nicotine dependence
CPT/HCPCS: 00811; J2250; J2704; J7120